=== PATIENT | female | born 1980 | race Caucasian/White ===

== ENCOUNTER 2021-05-02 14:33 | Outpatient (CLI) | payer SELFPAY ==
--- NOTE | 2021-05-02 11:09 | PCM.HP.BLA ---
History and Physical Date of Admission: 05/02/21 HISTORY AND PHYSICAL ? Michelle Howard 1980 ? ? REFERRING PHYSICIAN: Self ? CHIEF COMPLAINT: Consult (thyroid issues) ? HPI: The patient is a 40 year old female with a complaint of a right thyroid nodule. This thyroid nodule was found on Ultrasound by [facility]. The patient denies pain, denies difficulty swallowing, deniesrapid enlargement of the neck, deniesdysphagia, denies a change in the voice, denies hot or cold intolerence. The patient has not a prior history of neck radiation treatment. ? PAST MEDICAL HISTORY PAST MEDICAL HISTORY Diagnosis Date ? Disorder of thyroid ? ? ? PAST SURGICAL HISTORY PAST SURGICAL HISTORY Procedure Laterality Date ? APPENDECTOMY ? 02/2007 ? ? ? CURRENT MEDICATIONS Current Outpatient Medications Medication Sig Dispense Refill ? vit no.124/iron/folic ( VITAMIN ORAL) Take by mouth once daily. ? ? ? amino acids/chromium (CHROMIMIN ORAL) Take by mouth once daily. ? ? ? No current facility-administered medications for this visit. ? ? ALLERGIES: Patient has no known allergies. ? PERSONAL HISTORY: SOCIAL HISTORY Social History ? Tobacco Use ? Smoking status: Never Smoker ? Smokeless tobacco: Never Used Vaping Use ? Vaping Use: Never used Substance Use Topics ? Alcohol use: Never ? Drug use: Never ? FAMILY HISTORY: FAMILY HISTORY FAMILY HISTORY Problem Relation Age of Onset ? No Known Problems Mother ? ? No Known Problems Father ? ? No Known Problems Sister ? ? No Known Problems Brother ? ? ? REVIEW OF SYMPTOMS: The review of systems data was entered by the nurse and reviewed by me ? Nursing Notes: Cathryn Bull LPN 03/17/2021 2:51 PM Signed REVIEW OF SYSTEMS: General: The patient denies fatigue, denies weight loss, denies weight gain, denies feeling hot, and denies feelings of cold. Eyes: The patient denies glaucoma, denies eye injury/surgery, does not wear glasses or contacts. Ear/Nose/Throat: The patient denies allergies, denies hayfever, denies ear infections, and denies bloody noses. Cardiovascular: The patient denies chest pain, denies heart disease, denies high blood pressure,denies cardiac stent, denies prior heart attack, denies irregular heart beat, denies high cholesterol, denies poor circulation, denies heart failure, other cardiac issues, denies claudication, denies cold feet, denies peripheral arterial stent. Respiratory: The patient denies tuberculosis, denies pneumonia, denies frequent cough, denies pulmonary embolism, denies shortness of breath, and denies coughing up blood. Gastrointestinal: The patient denies difficulty swallowing, denies acid reflux, denies ulcers, denies vomiting, denies jaundice/hepatitis, denies gallbladder problems, denies black or tarry stools, denies hemorrhoids, denies bleeding from rectum, denies diverticulitis, denies constipation, denies diarrhea, denies loss of stool control, and denies hernias. Kidney/Bladder: The patient denies kidney stones, denies urine infections, and denies bloody urine. Skin: The patient denies a history of skin cancer, denies bleeding/changing moles, and denies a history of skin rash. Neurologic: The patient denies a history of epilepsy/convulsions, denies headaches, denies head/spinal injuries, and denies stroke/TIA. Psychiatric: The patient denies psychiatric medications, denies depression, and denies voices, denies substance abuse. Endocrine: The patient notes thyroid disorders, denies diabetes, and denies hormonal problems. Hematologic: The patient denies a history of bruising, denies bleeding, and denies anemia, denies blood clots. Infections: The patient denies a history of measles and mumps, denies rheumatic fever, and denies sexually transmitted diseases. Musculoskeletal: The patient denies back pain/injury, denies back problems, denies sciatica, denies knee/foot trouble, denies arthritis, or denies gout. ? ? When was patient's last Mammogram screening? Has not had one. ? Last Colonoscopy: Has not had one. ? Cathryn Bull LPN ? PHYSICAL EXAMINATION: ? General: The patient is 40 year old female, well nourished, well hydrated in no acute distress. The patient is oriented to time, place, and person. ? VITALS: Blood pressure 114/60, pulse (!) 138, temperature 36.6 ?C (97.9 ?F), height 157.5 cm (5' 2), weight 88.5 kg (195 lb 3.2 oz), SpO2 98 %. Body mass index is 35.7 kg/m?. ? HEENT: Normal cephalic, ataumatic, pupils are equally round, sclera are anicteric, mucous membranes are moist, oropharynx is clear. Neck has no masses, asymmetry or lymphadenopathy. Thyroid exam no hard palpable nodules are identified.. ? Respiratory: Clear to auscultation and percussion. Normal respiratory excursion and pattern. ? Cardiac: Examination is regular rate and rhythm. ? Abdominal exam: Soft, nontender, with no palpable masses. No hepatosplenomegaly. No palpable hernias. ? Rectal exam: exam deferred ? Extremities: no clubbing, cyanosis or edema. No adenopathy. ? Other: ? LABORATORY VALUES: As Noted ? RADIOLOGIC STUDIES: As Noted ? Assessment IMPRESSION: NODULE - right THYROID ? PLAN: I plan to perform an FNAC of the right Thyroid. ? Diagnoses: (E04.2) Multinodular goiter (primary encounter diagnosis) ? ? ? Return to Clinic: The patient is instructed to follow-up with me 1 week post operatively. ? Stone Uriostegui III, MD
--- NOTE | 2021-05-02 14:41 | US_ITS ---
PROCEDURE: ULTRASOUND GUIDED RIGHT THYROID FNA/BIOPSY. DATE: 05/02/2021. INDICATION: Female, 40 years old. Right thyroid nodule. PHYSICIAN: Chucho Fox M.D. MEDICATIONS: 2% lidocaine administered subcutaneously for local anesthesia. ACCESS SITE: Right - anterior approach. NEEDLE: 22-gauge FNA needle. SPECIMEN: Multiple FNA specimen collected and given to pathology. EBL: None. COMPLICATIONS: None immediate. PROCEDURE: The risks, benefits, and alternatives to the procedure were explained to the patient. The specific risk of hemorrhage requiring further treatment or intervention was detailed and accepted. Written informed consent was obtained. The patient was brought into the ultrasound room and placed in the supine position on the stretcher. An appropriate entry site was identified. The overlying skin was prepped and draped in the usual sterile fashion. 2% lidocaine was administered subcutaneously for local anesthesia. Under ultrasound guidance, a 25-gauge FNA needle was advanced into the lesion. Aspiration was performed and the needle was withdrawn. A total of 4 passes were performed with specimen collected and given to the pathologist who was present during the procedure. Hemostasis was achieved with manual compression. Repeat ultrasound images of the biopsy area was performed which demonstrated no gross bleeding or hematoma. An antibiotic ointment dressing was placed and the patient was given an icepack. The patient tolerated the procedure well without immediate complications. The patient was discharged in stable condition. US/FNA 1st Biopsy w/ US IMPRESSION: Successful ultrasound-guided right thyroid nodule FNA/biopsy, as described above. Electronically Signed: Chucho Fox MD at 8:27 EST ,
[2021-05-02] MEDS: Lidocaine 2% (20 ml mdv) 20 ML Vial INFILT (15:00)
--- NOTE | 2021-05-02 15:15 | ASPIG_PTH ---
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 Stone Uriostegui MD : 1980 BED: DIS: 05/02/2021 SPEC #: [id number] RECD: 05/02/21 15:30 STATUS: ADRIANE TANMAY #: [id number] ANGELLA: 05/02/21 15:[address]: Stone Uriostegui DEPT: CYTOLOGY RECD BY: Alicia Velez ENTERED: 05/02/21 15:47 SP TYPE: ASP OUT OTHR DR: Dr. Danny Cope MD Tissues: Thyroid gland, NOS Procedures: FNA Specimen Adequacy Special Stain Group II Surgery Specimen Level IV Cytology Other HEADER OPERATION: Ultrasound-guided right thyroid biopsy PRE-OP DIAGNOSIS: Right thyroid nodule TISSUE SUBMITTED: Right thyroid nodule DIAGNOSIS CYTOLOGY Ultrasound-guided fine needle aspiration of right thyroid nodule (smears and cell block): Follicular neoplasm. AM:rg 05/05/2021 COMMENT The specimen is evaluated at the time of biopsy by Dr. Hagan. Immediate Smear Evaluation (pass #1) = Follicular cells present. Immediate Smear Evaluation (pass #2) = Follicular cells present. Immediate Smear Evaluation (pass #3) = Follicular cells present. Per recommendations and a clinician-approved plan, genomic testing (Afirma) has been submitted. Case has been reviewed in consultation with Dr. Mcqueen who concurs with the above diagnosis. IDC:SJ CYTOLOGY STUDY Slides are reviewed. CYTOLOGY GROSS Received in three passes is 30 ml of CytoLyt with particles labeled with the patient's name, and designated right thyroid nodule. Fourteen imprints and four paps are made from the submitted fluid and the rest is added to CytoLyt for cell block preparation. Submitted for cytology study. / AM:teri 05/02/2021 TC:? CPT: 09421, 68819, 11783, 84161 x2 ADDENDUM ADDENDUM ADDENDUM ADDENDUM ADDENDUM ADDENDUM ADDENDUM ADDENDUM ADDENDUM ADDENDUM ADDENDUM 05/26/2021 09:52 ADDENDUM 05/26/2021 09:52 ADDENDUM 05/26/2021 09:52 ADDENDUM 05/26/2021 09:52 ADDENDUM 05/26/2021 09:52 AFIRMA REPORT RESULTS: Thyroid, middle right, 1.1 cm MTC: Negative Parathyroid: Negative BRAF p. V600E c. 1799T>A: Negative RET/PTC1, RET/PTC3: Not detected Please see complete report in e-chart or EMR
--- NOTE | 2021-05-02 15:23 | PCM.OPRPT ---
Problems Associated Problem List Diagnoses (1) Multinodular goiter (nontoxic): Report of Operation Date of Procedure: 05/02/21 Pre-Operative Diagnosis: Multinodular goiter Post-Operative Diagnosis: Same Surgery/Procedure Performed:: Ultrasound-guided fine-needle aspiration of dominant right thyroid nodules Surgeon: Stone Uriostegui winding rack operator: None Type of Anesthesia: Local Estimated Blood Loss (mL): <5 cc Description of Procedure: Patient was brought into the ultrasound unit. Placed in the supine position. Ultrasound the right side of the neck revealing the dominant nodule. Prepped the skin with Betadine. Injected 1% lidocaine plain. Under ultrasound guidance injected local through the muscle. Under ultrasound guidance 4 passes with a 22-gauge needle were performed and given immediately to the pathologist. He plated these and looked at it under the microscope saying we had adequate number of follicular cells. Sterile dressings were applied. The patient tolerated the procedure well. Admit VTE Documentation VTE Present on Admission: No VTE Mechan Device Prophylaxis: None VTE Pharm Prophylaxis ordered?: No Reason prophylaxis not ordered:: Treatment Not Indicated
== END 2021-05-02 23:59 | disposition home or self-care (01) ==
LOC: US 14:38
PROVIDERS: PCP Family Medicine; Referring Provider Surgery; Visit Provider Surgery
DX: E04.2 Nontoxic multinodular goiter (principal)
CPT/HCPCS: 10005; 88161; 88172; 88305; 88313

== ENCOUNTER → 2023-07-29 | Outpatient (CLI) | payer SELFPAY ==
--- NOTE | 2023-07-29 16:23 | RAD_ITS ---
INDICATION: Left foot injury EXAMINATION/TECHNIQUE: X-RAY - LEFT XR Foot 3 Views COMPARISON: FINDINGS: SOFT TISSUES: There is soft tissue swelling over the dorsum. No radiopaque foreign body. BONES/JOINTS: No acute fracture or subluxation.. Normal alignment. Preservation of the joint space.. No sclerotic or destructive changes observed. RAD/Foot min 3 Views IMPRESSION: There is soft tissue swelling over the dorsum. Electronically Signed: Chandu Marinelli DO at 16:45 EDT ,
== END | disposition home or self-care (01) ==
LOC: MTRAD 16:23
PROVIDERS: PCP Family Medicine; Referring Provider Physician Assistant Surgical; Visit Provider Physician Assistant Surgical
DX: S96.912A Strain of unspecified muscle and tendon at ankle and foot level, left foot, initial encounter (principal)
CPT/HCPCS: 73630

== ENCOUNTER → 2024-03-09 | Outpatient (CLI) | payer SELFPAY ==
--- NOTE | 2024-03-09 15:26 | US_ITS ---
EXAM: US Head/Neck Soft Tissue HISTORY: Mapping for lymph nodes COMPARISON: None Technique: Orthogonal sonographic evaluation of both sides of the neck FINDINGS: There are bilateral jugular chain lymph nodes. All measure less than 1 cm in short axis dimension and demonstrate normal sonographic characteristics. No suspicious sonographic characteristics noted. The largest 3 on the right measured: Zone 2: 2.3 x 1.3 x 0.8 cm Zone 2: 2.1 x 1.1 x 0.6 cm Zone 3: 1.5 x 0.8 x 0.2 cm Largest 4 on the left side Zone 2: 1.6 x 1.2 x 0.6 cm Zone 2: 1.8 x 1.2 x 0.6 cm Some 3: 1.5 x 0.6 x 0.3 cm Zone 6: 0.5 x 0.4 x 0.3cm US/Head/Neck Soft Tissue IMPRESSION: Physiologic jugular chain lymph nodes. No suspicious enlarged bulky adenopathy noted Electronically Signed: Manuel Soares MD at 8:44 EST ,
--- NOTE | 2024-03-09 15:26 | US_ITS ---
STUDY: THYROID ULTRASOUND REASON FOR EXAM: Female, 43 years old. Known partial thyroidectomy, reevaluation TECHNIQUE: Ultrasound evaluation of the thyroid was performed with real-time and static gaitan-scale imaging. COMPARISON: Biopsy from 2021 FINDINGS: RIGHT LOBE: The right lobe and isthmus of the thyroid were previously removed LEFT LOBE: The left lobe of the thyroid gland measures 3.1 x 1.2 x 1.1 cm. There is a heterogeneous echotexture. There are no demonstrated solid, cystic or complex lesions. There is hyperemia The regional lymph nodes are normal. In the right thyroid bed, there is a small complex heterogeneous nodule measuring 0.6 x 0.5 x 2.4 cm likely postoperative. In the isthmus fossa there are 2 separate similar heterogeneous nodules larger measures 2.5 x 0.5 x 0.3 cm, smaller measures 0.4 x 0.4 x 0.4 cm US/Thyroid IMPRESSION: Heterogeneous left lobe of the thyroid with hyperemia. No discrete lesion Subcentimeter heterogeneous nodules in the right thyroid bed and isthmus. Since there are no recent studies available for comparison, a 3-6 month follow-up ultrasound is recommended to assure stability Electronically Signed: Manuel Soares MD at 8:48 EST ,
== END | disposition home or self-care (01) ==
LOC: US 15:26
PROVIDERS: PCP Family Medicine; Referring Provider Surgery; Visit Provider Surgery
DX: E06.9 Thyroiditis, unspecified (principal); E89.0 Postprocedural hypothyroidism
CPT/HCPCS: 76536

== ENCOUNTER → 2024-04-06 | Outpatient (CLI) | payer SELFPAY ==
[2024-04-06 16:39] LABS: T4 Free Direct 2.11 ng/dL (0.76-1.46); Thyroid Stim Hormone (TSH) < 0.005 uIU/mL (0.358-3.740)
[2024-04-18 14:07] LABS: Anti-Thyroglobulin AB 17.9 IU/mL (0.0-0.9); Thyroglobulin RIA 6.1 ng/mL (.); Thyroid Peroxidase AB 103 IU/mL (0-34)
== END | disposition home or self-care (01) ==
PROVIDERS: PCP Family Medicine; Referring Provider Internal Medicine Endocrinology, Diabetes & Metabolism; Visit Provider Internal Medicine Endocrinology, Diabetes & Metabolism
DX: C73 Malignant neoplasm of thyroid gland (principal); E89.0 Postprocedural hypothyroidism; E06.9 Thyroiditis, unspecified
CPT/HCPCS: 36415; 84432; 84439; 84443; 86376; 86800

== ENCOUNTER → 2024-06-08 | Outpatient (CLI) | payer SELFPAY ==
[2024-06-08 09:35] LABS: Thyroid Stim Hormone (TSH) 0.021 uIU/mL (0.300-4.200)
== END | disposition home or self-care (01) ==
PROVIDERS: PCP Family Medicine; Referring Provider Internal Medicine Endocrinology, Diabetes & Metabolism; Visit Provider Internal Medicine Endocrinology, Diabetes & Metabolism
DX: E89.0 Postprocedural hypothyroidism (principal)
CPT/HCPCS: 36415; 84439; 84443

== ENCOUNTER → 2025-02-23 | Outpatient (CLI) | payer OTHER, SELFPAY | END | disposition home or self-care (01) | PROVIDERS: PCP Family Medicine; Referring Provider Internal Medicine Endocrinology, Diabetes & Metabolism; Visit Provider Internal Medicine Endocrinology, Diabetes & Metabolism | DX: E89.0 Postprocedural hypothyroidism (principal) | CPT/HCPCS: 36415; 84439; 84443 ==